=== PATIENT | male | born 1990 | race Caucasian/White ===

== ENCOUNTER 2017-04-06 09:23 | Emergency (ER) | payer OTHER ==
[2017-04-06 09:30] VITALS: BP 142/88
--- NOTE | 2017-04-06 09:43 | PHYS DOC ---
Past History Past Medical History: No Pertinent History Past Surgical History: No Surgical History Alcohol Use: None Drug Use: None Adult General HPI HPI 26-year-old male with no significant past medical history now complaining of left upper back pain after moving a box at work. Does strenuous work at a [employer]. Today he was moving a box and felt sudden onset of left mid back pain. He has no spinal pain. Normal bowel and bladder habits. The pain is adjacent to his spine on the left and not in his CVA area. He has no leg numbness weakness pain with range of motion of the lower extremities or incontinence. She is otherwise asymptomatic except for local symptoms in the left mid back Review of Systems Review of Systems Constitutional: Denies fever or chills [] Eyes: Denies change in visual acuity, redness, or eye pain [] HENT: Denies nasal congestion or sore throat [] Respiratory: Denies cough or shortness of breath [] Cardiovascular: No additional information not addressed in HPI [] GI: Denies abdominal pain, nausea, vomiting, bloody stools or diarrhea [] : Denies dysuria or hematuria [] Musculoskeletal: Denies back pain or joint pain [] Integument: Denies rash or skin lesions [] Neurologic: Denies headache, focal weakness or sensory changes [] Endocrine: Denies polyuria or polydipsia [] Allergies Allergies Allergies Coded Allergies Type Severity Reaction Last Updated Verified No Known Drug Allergies 08/29/15 No Physical Exam Physical Exam Constitutional: Well developed, well nourished, no acute distress, non-toxic appearance. [] HENT: Normocephalic, atraumatic, bilateral external ears normal, oropharynx moist, no oral exudates, nose normal. [] Eyes: PERRLA, EOMI, conjunctiva normal, no discharge. [] Neck: Normal range of motion, no tenderness, supple, no stridor. [] Cardiovascular:Heart rate regular rhythm, no murmur [] Lungs & Thorax: Bilateral breath sounds clear to auscultation [] Abdomen: Bowel sounds normal, soft, no tenderness, no masses, no pulsatile masses. [] Skin: Warm, dry, no erythema, no rash. [] Back: Left mid back with paraspinal soft tissue tenderness. No midline or bony tenderness. No step-off. No muscle spasm. No skin changes. Patient has no mass or soft tissue swelling the back as a normal gross appearance clear lungs no subcutaneous air and no bony tenderness, no CVA tenderness. [] Extremities: No tenderness, no cyanosis, no clubbing, ROM intact, no edema. [] Neurologic: Alert and oriented X 3, normal motor function, normal sensory function, no focal deficits noted. [] Psychologic: Affect normal, judgement normal, mood normal. [] EKG EKG [] Radiology/Procedures Radiology/Procedures Chest x-ray unremarkable with no evidence of pneumothorax. No acute disease, normal study Course & Med Decision Making Course & Med Decision Making Pertinent Labs and Imaging studies reviewed. (See chart for details) Symptoms and symptoms consistent with dorsal strain. Uncomplicated. No evidence of spinal injury or bony thoracic injury. Chest x-ray done to rule out less likely possibility of occult pneumothorax. Pain is not lumbar distribution and patient has no evidence of clinical cauda equina syndrome. He has a nonfocal neurologic exam is well-appearing has no splinting respirations and has unremarkable vital signs with normal respiratory rate and pulse ox. Ibuprofen given. Patient were to take NSAIDs at home and use ice for the first day or 2. He will follow-up with Workmen's Compensation as well as his doctor. Patient aware to do light duty with no strenuous activity until cleared by his Workmen' s Compensation physician. The patient agrees with outpatient follow-up. No other workup or treatment indicated at this time. Strict return precautions given [] Dragon Disclaimer Dragon Disclaimer This chart was dictated in whole or in part using Voice Recognition software in a busy, high-work load, and often noisy Emergency Department environment. It may contain unintended and wholly unrecognized errors or omissions. Departure Departure: Impression: Primary Impression: Strain, dorsal Disposition: HOME, SELF-CARE Condition: IMPROVED Referrals: PCP,NO (PCP) Patient Instructions: Low Back Strain with [facility] Additional Instructions: You have signs of dorsal strain which means you injured the muscles of the mid back. Rest apply ice and take anti-inflammatory medication such as 800 mg of ibuprofen every 6 hours as needed for pain. Observe light duty and Avoid strenuous activity until her symptoms are resolved and you're medically cleared by your Workmen's Comp. doctor. GUI SPRINGER MD Apr 06, 2017 09:43
[2017-04-06] MEDS ORDERED: IBUPROFEN 600 MG TABLET. PO ONE ×2 (09:47→10:00)
--- NOTE | 2017-04-06 10:07 | RAD ---
AP PORTABLE CHEST Clinical Indication: hurt at work. Chest pain, fell today. Comparison: None. Findings: The cardiomediastinal silhouette is normal. Lungs are clear. There is no pneumothorax. No pleural effusion is appreciated. There is no acute bone abnormality. IMPRESSION: No acute cardiopulmonary process.
== END 2017-04-06 10:08 | disposition home or self-care (01) ==
LOC: ER 09:23
DX: S39.012A Strain of muscle, fascia and tendon of lower back, initial encounter (principal); X58.XXXA Exposure to other specified factors, initial encounter; Y93.89 Activity, other specified; Y99.0 Civilian activity done for income or pay; Y92.512 Supermarket, store or market as the place of occurrence of the external cause
CPT/HCPCS: 71010; 99283